=== PATIENT | male | born 1950 | race African-American/Black ===

== ENCOUNTER 2017-05-15 13:29 | Outpatient (CLI) | payer MEDICARE, OTHER ==
[~2017-05-15] VITALS: Ht 182.9 cm; Wt 79.8 kg
[2017-05-15 13:47] VITALS: BP 144/102
[2017-05-15 13:49] VITALS: BP 143/96
[2017-05-15] MEDS ORDERED: OMEGA 3 500 SO1 EACH PO (13:50)
[2017-05-15] MEDS ORDERED: VITAMIN D1000 UNI1 ORAL (13:50)
[2017-05-15] MEDS ORDERED: CENTRUM MEN'S1 EACH PO (13:50)
--- NOTE | 2017-05-15 15:53 | GI Initial Consult Note ---
TaneshaJackie Abilio N.PKezia 05/15/17 1553: History of Present Illness General Date patient seen: May 15, 2017 Time patient seen: 15:43 Referring physician: JEFFERY Reason for Consultation: ROUTINE COLONOSCOPY Present Illness HPI 66 year old male patient referred by Dr. James presents today for repeat routine endoscopy/colonoscopy. He presents today with c/o of heartburn r/t GERD , possible mild dysphagia with solids and hypertension. Patient states he has not seen Dr. Baum for awhile. Denies any unintentional weight loss or changes in dietary habits. Home Meds Reported Medications Multivits,Ca,Min/Iron/FA/Lycop (Centrum Men's Tablet) 1 Each Tablet, 1 EACH PO DAILY, TAB 05/15/17 Cholecalciferol (Vitamin D3)* (VITAMIN D*) 1,000 Unit Tablet, 1000 UNIT ORAL DAILY, #30 TAB 05/15/17 [place]-3/Dha/Epa/Fish Oil ([place] 3 500 Softgel) 1 Each Capsule, 1 EACH PO DAILY, CAP 05/15/17 Med list reviewed/reconciled: Yes Allergies: Coded Allergies: No Known Allergies (Unverified , 05/15/17) Patient History History Provided By: Patient PMH Narrative Denies any past medical or surgical history. Pertinent Family History: none Social History: Reports: alcohol use - social Review of Systems All Other Systems: negative except mentioned in HPI Physical Exam Vital Signs Date Time Temp Pulse Resp B/P (MAP) Pulse Ox O2 Delivery O2 Flow Rate FiO2 05/15/17 13:47 98.4 83 18 144/102 98 Sp02 EP Interpretation: reviewed, normal General Appearance: well appearing, no apparent distress, alert Head: normocephalic EENT: PERRL/EOMI, normal ENT inspection Neck: supple Respiratory: normal breath sounds, no respiratory distress Cardiovascular: normal rate Gastrointestinal: normal inspection, non tender, soft, normal bowel sounds, non -distended Rectal: deferred Genitourinary: deferred Musculoskeletal: normal inspection, back normal Neurologic: normal inspection, alert, oriented x3, responsive Psychiatric: normal inspection, judgement/insight normal, memory normal Skin: normal inspection, normal color, no rash, warm/dry, palpation normal, well hydrated Lymphatic: normal inspection, no adenopathy GI: Plan Problems: (1) GERD (gastroesophageal reflux disease) (2) Dysphagia (3) Hypertension (4) Colonoscopy planned Plan EGD/colonoscopy scheduled 05/21/17. - CLD & (Nulytely/Suprep) prep instructions given and acknowledged by patient. - NPO @ MN day prior procedure explained. labs to be drawn day of >> CBC, CMP, TSH, Free T4, PSA, Testosterone levels, ? prolactin Seen with Dr. Calhoun. Thank you for this patient referral. DANE CALHOUN 05/16/17 1009: History of Present Illness Present Illness Home Meds Reported Medications Multivits,Ca,Min/Iron/FA/Lycop (Centrum Men's Tablet) 1 Each Tablet, 1 EACH PO DAILY, TAB 05/15/17 Cholecalciferol (Vitamin D3)* (VITAMIN D*) 1,000 Unit Tablet, 1000 UNIT ORAL DAILY, #30 TAB 05/15/17 [place]-3/Dha/Epa/Fish Oil ([place] 3 500 Softgel) 1 Each Capsule, 1 EACH PO DAILY, CAP 05/15/17 Allergies: Coded Allergies: No Known Allergies (Unverified , 05/15/17) GI: Plan Plan The patient was seen and examined at bedside and all new and available data was reviewed in the patients chart. I agree with the above findings, impression and plan. (Patient seen earlier today. Signature stamp does not reflect patient encounter time.). - MD Tanesha [facility] Abilio N.P. May 15, 2017 15:53 DANE CALHOUN May 16, 2017 10:09
== END 2017-05-15 14:15 | disposition home or self-care (01) ==
LOC: PAN 13:29
DX: K21.9 Gastro-esophageal reflux disease without esophagitis (principal); R13.10 Dysphagia, unspecified; I10 Essential (primary) hypertension
CPT/HCPCS: 99201

== ENCOUNTER 2017-05-21 07:53 | Day surgery (SDC) | payer MEDICARE, OTHER ==
[~2017-05-21] VITALS: Ht 182.9 cm; Wt 79.8 kg
[2017-05-21] VITALS (9 sets, daily range): BP systolic 111–150; BP diastolic 76–95
--- NOTE | 2017-05-21 06:46 | Anethesia Preoperative Eval ---
Anesthesia Pre-op PMH/ROS General Date of Evaluation: May 21, 2017 Time of Evaluation: 06:45 Anesthesiologist: valente ASA Score: ASA 3 Mallampati Score Class I : Soft palate, uvula, fauces, pillars visible Class II: Soft palate, uvula, fauces visible Class III: Soft palate, base of uvula visible Class IV: Only hard plate visible Mallampati Classification: Class II Surgeon: eloy Diagnosis: gerd, colon screening Surgical Procedure: egd/colonoscopy Anesthesia History: none Family History: no anesthesia problems Allergies: Coded Allergies: No Known Allergies (Unverified , 05/21/17) Medications: see eMAR Past Medical History Cardiovascular: Reports: HTN Gastrointestinal/Genitourinary: Reports: GERD Anesthesia Pre-op Phys. Exam Physician Exam Last Vital Signs Date Time Temp Pulse Resp B/P (MAP) Pulse Ox O2 Delivery O2 Flow Rate FiO2 05/21/17 08:37 97.0 87 19 150/95 99 Room Air Constitutional: NAD Neurologic: CN 2-12 intact Cardiovascular: RRR Respiratory: CTA Gastrointestinal: S/NT/ND Airway Exam Mallampati Score: Class II MO: full Neck: supple TMD: 2fb ROM: full Teeth: intact Anesthesia Pre-op A/P Labs Labs Test 05/21/17 08:50 White Blood Count 5.3 K/UL (4.8-10.8) Red Blood Count 4.60 M/UL (4.70-6.10) Hemoglobin 14.6 G/DL (14.2-18.0) Hematocrit 44.1 % (42.0-52.0) Mean Corpuscular Volume 96 FL (80-99) Mean Corpuscular Hemoglobin 31.9 PG (27.0-31.0) Mean Corpuscular Hemoglobin Concent 33.2 G/DL (32.0-36.0) Red Cell Distribution Width 11.6 % (11.6-14.8) Platelet Count 158 K/UL (150-450) Mean Platelet Volume 9.2 FL (6.5-10.1) Neutrophils (%) (Auto) 53.4 % (45.0-75.0) Lymphocytes (%) (Auto) 32.2 % (20.0-45.0) Monocytes (%) (Auto) 8.8 % (1.0-10.0) Eosinophils (%) (Auto) 3.8 % (0.0-3.0) Basophils (%) (Auto) 1.8 % (0.0-2.0) Sodium Level 139 MMOL/L (136-145) Potassium Level 4.8 MMOL/L (3.5-5.1) Chloride Level 105 MMOL/L (98-107) Carbon Dioxide Level 28 MMOL/L (21-32) Anion Gap 6 mmol/L (5-15) Blood Urea Nitrogen 16 mg/dL (7-18) Creatinine 1.2 MG/DL (0.55-1.30) Estimat Glomerular Filtration Rate > 60 mL/min (>60) Glucose Level 93 MG/DL (74-106) Calcium Level 9.2 MG/DL (8.5-10.1) Total Bilirubin 1.1 MG/DL (0.2-1.0) Direct Bilirubin 0.1 MG/DL (0.0-0.3) Aspartate Amino Transf (AST/SGOT) 39 U/L (15-37) Alanine Aminotransferase (ALT/SGPT) 48 U/L (12-78) Alkaline Phosphatase 51 U/L (46-116) Total Protein 7.5 G/DL (6.4-8.2) Albumin 4.4 G/DL (3.4-5.0) Globulin 3.1 g/dL Albumin/Globulin Ratio 1.4 (1.0-2.7) Prostate Specific Antigen 2.7 ng/mL (0.0-4.0) Thyroid Stimulating Hormone (TSH) 1.686 uiU/mL (0.360-3.740) Free Thyroxine 0.90 NG/DL (0.10-1.46) Risk Assessment & Plan Assessment: asa3 Plan: mac Status Change Before Surgery: No Pre-Antibiotics Drug: HAJA Cee May 21, 2017 06:46
[~2017-05-21 07:53] MED LIST: CENTRUM MEN'S1 EACH PO; OMEGA 3 500 SO1 EACH PO; VITAMIN D1000 UNI1 ORAL
[2017-05-21 09:03] LABS: BASOPHILS % (AUTO) 1.8 % (0.0-2.0); EOSINOPHILS % (AUTO) 3.8 % (0.0-3.0); LYMPHOCYTES % (AUTO) 32.2 % (20.0-45.0); MEAN CORPUSCULAR HEMOGLOBIN 31.9 PG (27.0-31.0); MEAN CORPUSCULAR HGB CONC 33.2 G/DL (32.0-36.0); MEAN CORPUSCULAR VOLUME 96 FL (80-99); MEAN PLATELET VOLUME 9.2 FL (6.5-10.1); MONOCYTES % (AUTO) 8.8 % (1.0-10.0); NEUTROPHILS % (AUTO) 53.4 % (45.0-75.0); PLATELET COUNT 158 K/UL (150-450); RED CELL DISTRIBUTION WIDTH 11.6 % (11.6-14.8); WHITE BLOOD COUNT 5.3 K/UL (4.8-10.8)
[2017-05-21 09:34] LABS: ALANINE AMINOTRANSFERASE 48 U/L (12-78); ALBUMIN/GLOBULIN RATIO 1.4 (1.0-2.7); ANION GAP 6 mmol/L (5-15); ASPARTATE AMINO TRANSFERASE 39 U/L (15-37); CALCIUM 9.2 MG/DL (8.5-10.1); CARBON DIOXIDE 28 MMOL/L (21-32); CHLORIDE 105 MMOL/L (98-107); CREATININE 1.2 MG/DL (0.55-1.30); GLOMERULAR FILTRATION RATE > 60 mL/min (>60); POTASSIUM 4.8 MMOL/L (3.5-5.1); PSA TOTAL 2.7 ng/mL (0.0-4.0); SODIUM 139 MMOL/L (136-145); THYROID STIMULATING HORMONE 1.686 uiU/mL (0.360-3.740); TOTAL PROTEIN 7.5 G/DL (6.4-8.2)
[2017-05-21 09:35] LABS: BILIRUBIN,DIRECT 0.1 MG/DL (0.0-0.3)
[2017-05-21] MEDS ORDERED: Propofol 200mg/20ml IV ONE ×2 (10:30)
[2017-05-21] MEDS ORDERED: Lidocaine 1% MPF 10mg/ml 5ml ONE (10:30)
--- NOTE | 2017-05-21 10:31 | Pre-Procedure Note/Attestation ---
Pre-Procedure Note/Attestation Complete Prior to Procedure Planned Procedure: not applicable Procedure Narrative: esophagogastroduodenoscopy colonoscopy Indications for Procedure Pre-Operative Diagnosis: screening colon, chronic GERD Attestation I attest that I discussed the nature of the procedure; its benefits; risks and complications; and alternatives (and the risks and benefits of such alternatives ), prior to the procedure, with the patient (or the patient's legal registration representative). I attest that, if there was a reasonable possibility of needing a blood transfusion, the patient (or the patient's legal registration representative) was given the [facility] standardized written summary, pursuant to the Fabrizio Blood Safety Act ([place] Health and Safety Code # 1645, as amended). I attest that I re-evaluated the patient just prior to the surgery and that there has been no change in the patient's H&P, except as documented below: DANE CALHOUN May 21, 2017 10:31
--- NOTE | 2017-05-21 10:31 | Short Stay Surgery H&P ---
History of Present Illness History of Present Illness Chief Complaint see recent consult note HPI Noah Vogel Jr is a 66 year old male who was admitted on for Gerd,Colon Screening Patient History Allergies: Coded Allergies: No Known Allergies (Unverified , 05/21/17) PAST MEDICAL HISTORY: Past Surgeries: Social History: Medication History Scheduled Multivits,Ca,Min/Iron/FA/Lycop (Centrum Men's Tablet), 1 EACH PO DAILY, ( Reported) [place]-3/Dha/Epa/Fish Oil ([place] 3 500 Softgel), 1 EACH PO DAILY, (Reported) Physical Exam Vital Signs Last Vital Signs Date Time Temp Pulse Resp B/P (MAP) Pulse Ox O2 Delivery O2 Flow Rate FiO2 05/21/17 08:37 97.0 87 19 150/95 99 Room Air Labs Laboratory Tests Test 05/21/17 08:50 White Blood Count 5.3 K/UL (4.8-10.8) Red Blood Count 4.60 M/UL (4.70-6.10) L Hemoglobin 14.6 G/DL (14.2-18.0) Hematocrit 44.1 % (42.0-52.0) Mean Corpuscular Volume 96 FL (80-99) Mean Corpuscular Hemoglobin 31.9 PG (27.0-31.0) H Mean Corpuscular Hemoglobin Concent 33.2 G/DL (32.0-36.0) Red Cell Distribution Width 11.6 % (11.6-14.8) Platelet Count 158 K/UL (150-450) Mean Platelet Volume 9.2 FL (6.5-10.1) Neutrophils (%) (Auto) 53.4 % (45.0-75.0) Lymphocytes (%) (Auto) 32.2 % (20.0-45.0) Monocytes (%) (Auto) 8.8 % (1.0-10.0) Eosinophils (%) (Auto) 3.8 % (0.0-3.0) H Basophils (%) (Auto) 1.8 % (0.0-2.0) Sodium Level 139 MMOL/L (136-145) Potassium Level 4.8 MMOL/L (3.5-5.1) Chloride Level 105 MMOL/L (98-107) Carbon Dioxide Level 28 MMOL/L (21-32) Anion Gap 6 mmol/L (5-15) Blood Urea Nitrogen 16 mg/dL (7-18) Creatinine 1.2 MG/DL (0.55-1.30) Estimat Glomerular Filtration Rate > 60 mL/min (>60) Glucose Level 93 MG/DL (74-106) Calcium Level 9.2 MG/DL (8.5-10.1) Total Bilirubin 1.1 MG/DL (0.2-1.0) H Direct Bilirubin 0.1 MG/DL (0.0-0.3) Aspartate Amino Transf (AST/SGOT) 39 U/L (15-37) H Alanine Aminotransferase (ALT/SGPT) 48 U/L (12-78) Alkaline Phosphatase 51 U/L (46-116) Total Protein 7.5 G/DL (6.4-8.2) Albumin 4.4 G/DL (3.4-5.0) Globulin 3.1 g/dL Albumin/Globulin Ratio 1.4 (1.0-2.7) Prostate Specific Antigen 2.7 ng/mL (0.0-4.0) Thyroid Stimulating Hormone (TSH) 1.686 uiU/mL (0.360-3.740) Free Thyroxine 0.90 NG/DL (0.10-1.46) Total Testosterone Pending Plan Attestation Are the patient's medical conditions optimized for surgery? DANE CALHOUN May 21, 2017 10:31
--- NOTE | 2017-05-21 11:02 | Endoscopy Procedure Note ---
Endoscopy Procedure Note Indication for Procedure: screening colon, GERD Procedures Performed: EGD, colonoscopy Operative Findings/Diagnosis: gastritis, hemorrhoids, 2 polyps Specimen: yes Pt Tolerated Procedure Well: Yes Estimated Blood Loss: none Anesthesiologist: bella Anesthesia: MAC Implant(s) used?: No 50 yrs or older w/o bx or poly: No 10yrs. F/U not recommended: Yes If not recommended, why?: Above average risk 10 yrs. F/U needed: Yes 18 years or older w/prev. colo: Yes <3yrs. since last colonoscopy: No DANE CALHOUN May 21, 2017 11:02
[2017-05-21] MEDS ORDERED: fentaNYL 100 mcg/2 mL IV PRN (11:15)
[2017-05-21] MEDS ORDERED: Midazolam 2mg/2ml Inj IVP PRN (11:15)
[2017-05-21] MEDS ORDERED: DiphenhydrAMINE 50mg/ml Inj IVP PRN (11:15)
[2017-05-21] MEDS ORDERED: Atropine Inj 1mg/10ml Syr IV PRN (11:15)
--- NOTE | 2017-05-21 12:20 | Immediate Post-Op Evaluation ---
Immediate Post-Op Evalulation Immediate Post-Op Evalulation Procedure: egd/colonoscopy Date of Evaluation: May 21, 2017 Time of Evaluation: 11:23 IV Fluids: 850ml 0.9ns Blood Products: none Estimated Blood Loss: negligible Blood Pressure Systolic: 111 Blood Pressure Diastolic: 76 Pulse Rate: 85 Respiratory Rate: 18 O2 Sat by Pulse Oximetry: 100 Temperature (Fahrenheit): 97.6 Pain Score (1-10): 0 Nausea: No Vomiting: No Complications none Patient Status: awake, reacts, patent Hydration Status: adequate Drug: HAJA Cee May 21, 2017 12:20
--- NOTE | 2017-05-21 12:22 | 48 Hour Post Anesthesia Eval ---
Post Anesthesia Evaluation Procedure: egd/colonoscopy Date of Evaluation: May 21, 2017 Time of Evaluation: 11:25 Blood Pressure Systolic: 111 0: 77 Pulse Rate: 85 Respiratory Rate: 18 Temperature (Fahrenheit): 97.6 O2 Sat by Pulse Oximetry: 100 Airway: patent Nausea: No Vomiting: No Pain Intensity: 0 Hydration Status: adequate Cardiopulmonary Status: stable Mental Status/LOC: patient returned to baseline Post-Anesthesia Complications: none Follow-up care needed: N/A HAJA BIANCHI May 21, 2017 12:22
--- NOTE | 2017-05-21 15:45 | Procedure Note ---
DATE OF PROCEDURE: 05/21/2017 SURGEON: Donato Jovel M.D. PROCEDURE: Upper endoscopy biopsy and colonoscopy with biopsy. ANESTHESIOLOGIST: Dorothy Crawford M.D. INSTRUMENT: Olympus adult flexible endoscope and colonoscope. INDICATION: Screening colonoscopy evaluation, chronic GERD. REASON FOR PROCEDURE: The procedure, risks, benefits, and possible consequences, including hemorrhage, aspiration, perforation and infection, and alternative treatments, were explained to the patient/legal guardian by Dr. Donato Jovel and the patient/legal guardian understood and accepted these risks. PROCEDURE: After informed consent was obtained and the patient was adequately sedated, first Olympus upper endoscope was advanced mouth into the second portion of the duodenum and retroflexion was performed of the stomach. The patient had evidence of diffuse gastritis. Random biopsies from antrum and body of the stomach was obtained to rule out H. pylori infection. The rest of the upper endoscope exam was grossly within normal limits. At this time, the upper endoscope was retrieved and the patient was turned over for colonoscopy. First, a rectal exam performed shows normal. Then, the scope was advanced from rectum to the cecum documented by appendiceal orifice, ileocecal valve, and right upper quadrant palpation. Quality of prep was very good. The patient had two diminutive polyps, one in the cecum and one in the ascending colon, removed with cold biopsy forceps technique. The rest of the exam was grossly normal. Retroflexion of rectum showed evidence of medium-sized internal hemorrhoids. SUMMARY FINDINGS: 1. Diffuse gastritis status post biopsy. 2. Two colonic polyps removed, see above for detail. 3. Internal hemorrhoids. RECOMMENDATIONS: 1. Follow up biopsies and treat accordingly. 2. We will repeat colonoscopy in five years. Donato Jovel M.D. DR: DM JOB#: [id number] CC:
[2017-05-24 16:19] LABS: TESTOSTERONE TOTAL (LC/MS/MS) 277 ng/dL (.)
--- NOTE | 2017-05-25 15:49 | Cardiology Report ---
APPROVED REPORT EKG Measurement Heart [id number] Normal sinus rhythm Normal ECG
== END 2017-05-21 12:20 | disposition home or self-care (01) ==
LOC: GAS 07:53
DX: Z12.11 Encounter for screening for malignant neoplasm of colon (principal); K21.9 Gastro-esophageal reflux disease without esophagitis; K29.50 Unspecified chronic gastritis without bleeding; D12.0 Benign neoplasm of cecum; D12.2 Benign neoplasm of ascending colon; I10 Essential (primary) hypertension
CPT/HCPCS: 36415; 43239; 45380; 80053; 82248; 84153; 84403; 84439; 84443; 85025; 93005; J2704; 94003; 94150

== ENCOUNTER 2017-06-03 09:18 | Outpatient (CLI) | payer MEDICARE, OTHER ==
[2017-06-03 09:51] VITALS: BP 145/89
--- NOTE | 2017-06-03 10:31 | GI Progress Note ---
Assessment/Plan Problems: (1) GERD (gastroesophageal reflux disease) ICD Codes: K21.9 - Gastro-esophageal reflux disease without esophagitis SNOMED: 461539123 (2) Hypertension ICD Codes: I10 - Essential (primary) hypertension SNOMED: 24469377 Status: stable Status Narrative Seen with Dr. Jovel. Assessment/Plan EGD/colonoscopy SUMMARY FINDINGS reviewed with patient: 1. Diffuse gastritis status post biopsy. >> negative for H. Pylori 2. Two colonic polyps removed, see above for detail. >> unremarkable 3. Internal hemorrhoids. labs reviewed with patient RECOMMENDATIONS: RTC PRN repeat colonoscopy x 5 years The patient was seen and examined at bedside and all new and available data was reviewed in the patients chart. I agree with the above findings, impression and plan. (Patient seen earlier today. Signature stamp does not reflect patient encounter time.). - Trenton Jovel MD Subjective Gastrointestinal/Abdominal: Reports: no symptoms Objective Last 24 Hour Vital Signs Date Time Temp Pulse Resp B/P (MAP) Pulse Ox O2 Delivery O2 Flow Rate FiO2 06/03/17 09:51 97.8 82 16 145/89 99 General Appearance: WD/WN, no apparent distress, alert Cardiovascular: normal rate Respiratory/Chest: normal breath sounds, no respiratory distress Abdominal Exam: normal bowel sounds, non tender, soft Extremities: normal range of motion, non-tender Jackie Almendarez N.P. Jun 03, 2017 10:31 DANE JOVEL Jun 04, 2017 10:12
== END 2017-06-03 10:06 | disposition home or self-care (01) ==
LOC: PAN 09:18
DX: K21.9 Gastro-esophageal reflux disease without esophagitis (principal); I10 Essential (primary) hypertension; K29.70 Gastritis, unspecified, without bleeding; K63.5 Polyp of colon
CPT/HCPCS: 99211